=== PATIENT | female | born 1990 | race Two or more races ===

== ENCOUNTER 2017-07-01 17:01 | Emergency (ER) | payer SELFPAY ==
[~2017-07-01] VITALS: Ht 170.2 cm; Wt 69.5 kg
[2017-07-01] MEDS ORDERED: GUAI100S7 PO (17:11)
[2017-07-01] MEDS ORDERED: NEUR100C PO (17:11)
[2017-07-01] MEDS ORDERED: [UNRECOGNIZED DRUG - CODE] PO (17:11)
[2017-07-01] MEDS ORDERED: CLAR10CA3 PO (17:11)
[2017-07-01] MEDS ORDERED: IPRATROPIUM 0.5MG/ALBUTEROL 2.5MG INH SOL UD 3ML (DUONEB)(J7620) NEB ONE ×2 (19:00→20:30)
[2017-07-01] MEDS ORDERED: ALBUTEROL SULFATE 2.5 MG/0.5 ML INH NEB SOLN NEB ONE (19:00)
[2017-07-01] MEDS ORDERED: methylPREDNISolone INJ 125 MG/2 ML VIAL (J2930) IV ONE (19:00)
[2017-07-01 19:18] LABS: BASO # 0.1 10^3/uL (0.0-0.2); BASO % 0.5 % (0.0-1.0); EOS # 0.9 10^3/uL (0.0-0.50); EOS % 7.6 % (0.0-3.0); IMMATURE GRANULOCYTE % 0.2 % (0-0); LYMPH # 2.1 10^3/uL (1.5-6.5); LYMPH % 17.7 % (24.0-44.0); MEAN CORPUSCULAR HEMOGLOBIN 29.9 pg (27.0-33.0); MEAN CORPUSCULAR HGB CONC 35.8 g/dl (32.0-36.5); MEAN CORPUSCULAR VOLUME 83.7 fl (80.0-96.0); MONO # 0.6 10^3/uL (0.0-0.8); MONO % 5.1 % (0.0-5.0); NEUTROPHILS # 8.3 10^3/uL (1.8-7.7); NEUTROPHILS % 68.9 % (36.0-66.0); PLATELET COUNT, AUTOMATED 295 10^3/uL (150-450)
[2017-07-01 19:43] LABS: ANION GAP 10 MEQ/L (8-16); BLOOD UREA NITROGEN 9 MG/DL (7-18); CALCIUM LEVEL 9.3 MG/DL (8.5-10.1); CARBON DIOXIDE LEVEL 25 MEQ/L (21-32); CHLORIDE LEVEL 105 MEQ/L (98-107); CREATININE FOR GFR 0.76 MG/DL (0.55-1.02); GLOMERULAR FILTRATION RATE > 60.0 (>60); GLUCOSE, FASTING 83 MG/DL (70-105); POTASSIUM SERUM 3.3 MEQ/L (3.5-5.1); SODIUM LEVEL 140 MEQ/L (136-145)
--- NOTE | 2017-07-01 19:56 | REP ---
PA and lateral chest: There are no comparisons. The lung cleaning are clear. The cardiac size is normal The jake, mediastinum, and bony thorax are unremarkable. Impression: Negative PA and lateral chest. Signed by Warren Callahan MD 07/01/2017 07:47 P
[2017-07-01] MEDS ORDERED: VENTAER IN (21:51)
[2017-07-01 21:55] VITALS: BP 141/82
== END 2017-07-01 22:05 | disposition home or self-care (01) ==
LOC: M ED 17:01
DX: J45.901 Unspecified asthma with (acute) exacerbation (principal); F17.200 Nicotine dependence, unspecified, uncomplicated; Z79.899 Other long term (current) drug therapy; Z88.1 Allergy status to other antibiotic agents
CPT/HCPCS: 71020; 80048; 85025; 85379; 87804; 94640; 94760; 96374; 99284; J2930

== ENCOUNTER → 2017-07-27 | Outpatient (REF) | payer OTHER ==
[~2017-07-27] MED LIST: CLAR10CA3 PO; GUAI100S7 PO; NEUR100C PO; VENTAER IN; [UNRECOGNIZED DRUG - CODE] PO
== END ==
LOC: M SFHCLERA 18:11
PROVIDERS: ATTEND Nurse Practitioner Family
DX: J02.9 Acute pharyngitis, unspecified (principal)